=== PATIENT | male | born 1950 | race Caucasian/White ===

== ENCOUNTER 2018-06-17 10:59 | Outpatient (CLI) | payer MEDICARE ==
[~2018-06-17] VITALS: Ht 172.7 cm; Wt 100.5 kg
--- NOTE | ~2018-06-17 | OP ---
PATIENT NAME: DIA NG MEDICAL RECORD: [id number] :54 LOCATION:D.CAT ADMISSION DATE: SURGEON: CHARLY MICHEL MD DATE OF OPERATION: 06/17/2018 PROCEDURE: Left heart catheterization, selective coronary angiography, right femoral artery approach. CATHETERS: A 5-Tongan sheath, 5/4 left and right Tasha, 5/4 pig. The procedure was well tolerated. The patient returned to youssef, sheath removed. ExoSeal device placed. FINDINGS: Left ventriculography in 30-degree LEON view: Normal wall motion, normal systolic function. CORONARY ANATOMY: LEFT MAIN: Left main is free of disease. LAD: Free of disease in the diagonal system. CIRCUMFLEX: Free of disease in the marginal system. RIGHT CORONARY ARTERY: Dominant artery, gives rise to PDA, free of disease. IMPRESSION: Normal LV systolic function, normal coronary anatomy. TRANSINT:[id number] Voice Confirmation ID: [id number] DOCUMENT ID: [id number] CHARLY MICHEL MD at 1449 CC: [id number] DICTATION DATE: 06/17/18 1320 BUSINESS DEVELOPMENT INTERN: 06/17/18 1337 DEP CLI 06/17/18 [facility] [address] [place] [address]
--- NOTE | ~2018-06-17 | HEMODYNAMI ---
PATIENT:DIA NG MEDICAL RECORD: [id number] : 54 LOCATION:[facility]UT[facility] ADMISSION DATE: 06/17/18 Generatedon:06/17/201813:14 Patient name: DIA NG Patient #: [id number] SSN: : 1950 Date of study: 06/17/2018 Page: Of Hemodynamic Procedure Report Patient Data Patient Demographics Procedure consent was obtained First Name: DIA Gender: Male Last Name: BERENICE : 1950 Middle Initial: CEDRIC Age: 67 year(s) Patient #: [id number] Race: Unknown Additional ID: [id number] Contact details Address: [address] [place] [address] State: [place] City: [place] Zip code: [address] Past Medical History Allergies: No known allergies Admission Admission Data Admission Date: 06/17/2018 Admission Time: 10:59 Height (in.): 5.8 BSA: 0.36 (m2) Height (cm.): 14.73 BMI: 4618.86 (kg/m2) Weight (lbs.): 221 Weight (kg.): 100.24 Lab Results Lab Result Date: 06/17/2018 Lab Result Time: 0:00 Biochemistry Name Units Result Min Max BUN mg/dl 19 --(----)*- 7 18 Creatinine mg/dl 1.5 --(----)-* 0.6 1.3 CBC Name Units Result Min Max Hemoglobin g/dl 14.7 --(-*--)-- 13.5 17.5 Procedure Procedure Types Cath Procedure Diagnostic Procedure LHC LH w/Coronaries Procedure Description Procedure Date Procedure Date: 06/17/2018 Procedure Start Time: 13:04 Procedure End Time: 13:12 Procedure Staff Name Function Rubin Bazzi MD Performing Physician Yaneli Ceja RT Monitor Lucy Thomson RT Scrub Martin Calderon RN Nurse Peter Maciel RT Emulsion Coater Procedure Data Cath Procedure Fluoroscopy Diagnostic fluoroscopy Total fluoroscopy Time: 1.4 time: 1.4 min min Diagnostic fluoroscopy Total fluoroscopy dose: 340 dose: 340 mGy mGy Contrast Material Contrast Material Type Amount (ml) Isovue 300 60 Entry Location Entry Primary Successful Side Size Upsize Upsize Entry Closure Succes sful Closure Location (Fr) 1 (Fr) 2 (Fr) Remarks Device Remarks Femoral Right 5 Fr Exoseal artery Estimated blood loss: 5 ml Diagnostic catheters Device Type Used For End Catheter Placement MULTIPACK JL 4.0 5Fr Procedure catheter MULTIPACK 3DRC 5Fr Procedure catheter MULTIPACK Pigtail 5 Fr Procedure catheter Procedure Complications No complications Procedure Medications Medication Administration Route Dosage 0.9% NaCl I.V. 100 ml/hr Oxygen etCO2 Nasal cannula 2 l/min Heparin Flush Bag added to field 2 bags (1000units/500ml NS) Lidocaine 2% added to field 20 Benadryl I.V. 50 mg Versed I.V. 2 mg Fentanyl I.V. 100 mcg Versed I.V. 1 mg Hemodynamics Rest BSA: 0.36 (m2) HGB: 14.7 (g/dl) O2 Consumption: Estimated: 41.38 (ml/min) O2 Con sumption indexed: Estimated:114.94 (ml/min/m) Heart Rate: 66 (bpm) Pressure Samples Time Site Value (mmHg) Purpose Heart Use Rate(bpm) 13:10 LV 122/3,23 Snapshot 71 Gradients Valve Time Site Site Mean SEP/DFP Peak To Heart Use 1 2 (mmHg) (sec/min) Peak Rate (mmHg) (bpm) Aortic 13:10 LV AO 60 Snapshots Pre Cath Intra NCS Post Cath Vital Signs Time Heart Resp SPO2 etCO2 NIBP Rhythm Pain Sedation Rate (ipm) (%) (mmHg) (mmHg) Status Level (bpm) 12:44:07 65 21 96 0 113/67(90) NSR 0 (11) 10(A) , No pain 12:48:49 67 16 95 29.2 111/62(76) NSR 0 (11) 10(A) , No pain 12:53:30 67 16 94 11.2 109/63(76) NSR 0 (11) 10(A) , No pain 12:58:10 69 14 94 37.5 106/68(92) NSR 0 (11) 10(A) , No pain 13:02:49 69 10 94 29.3 117/67(95) NSR 0 (11) 10(A) , No pain 13:07:30 71 12 97 40.5 122/63(86) NSR 0 (11) 9(A) , No pain 13:12:08 72 11 96 36.8 114/63(83) NSR 0 (11) 9(A) , No pain Medications Time Medication Route Dose Verified Delivered Reason Notes Eff ectiveness by by 12:47:45 0.9% NaCl I.V. 100 Martin Martin Per ml/hr Lorigan Lorigan physician RN RN 12:47:57 Oxygen etCO2 2 Martin Martin Per Nasal l/min Lorigan Lorigan physician cannula RN RN 12:48:09 Heparin Flush added 2 Martin Martin used for Bag to bags Lorigan Lorigan procedure (1000units/500ml field RN RN NS) 12:48:22 Lidocaine 2% added 20ml Martin Martin for local to vial Lorigan Lorigan anesthetic field RN RN 12:48:39 Benadryl I.V. 50 mg Martin Martin Per Lorigan Lorigan physician RN RN 13:00:59 Versed I.V. 2 mg Martin Martin for Lorigan Lorigan sedation RN RN 13:01:08 Fentanyl I.V. 100 Martin Martin for mcg Lorigan Lorigan sedation RN RN 13:06:42 Versed I.V. 1 mg Martin Martin for Lorigan Lorigan sedation RN federal district clerk Log Time Note 12:31:54 Signed procedure consent form obtained from patient. 12:31:55 Time tracking: Regular hours (M-F 7:00 - 5:00) 12:31:59 Plan of Care:Hemodynamics will remain stable., Cardiac rhythm will remain stable., Comfort level will be maintained., Respiratory function will remain adequate., Patient/ family verbilizes understanding of procedure., Procedure tolerated without complication., Recovers from procedure without complications.. 12:32:42 Peter REECE(R) sent for patient. Start room use. 12:33:07 H&P Date Dictated: 06/03/2018 Within 30 days and on chart., H&P Addendum completed by physician on day of procedure. (MUST COMPLETE FOR ALL OUTPATIENTS). 12:33:13 Patient allergic to No known allergies 12:33:25 Patient Height : 5.8 inches 12:33:29 Patient Weight : 221 lbs 12:34:04 Lab Result : BUN 19 mg/dl 12:34:04 Lab Result : Hemoglobin 14.7 g/dl 12:34:04 Lab Result : Creatinine 1.5 mg/dl 12:37:34 Patient received from Pre/Post Procedure Room to CCL 1 Alert and oriented. Tansferred to table in Supine position. 12:37:35 Warm blankets applied, and rickie hugger turned on for patient comfort. 12:37:35 Correct patient and procedure confirmed by team. 12:37:36 ECG and BP/O2 sat monitors applied to patient. 12:43:10 Vital chart was started 12:43:11 Baseline sample Acquired. 12:43:13 Rhythm: sinus rhythm 12:43:14 Full Disclosure recording started 12:43:15 Pre-procedure instructions explained to patient. 12:43:16 Pre-op teaching completed and patient verbalized understanding. 12:43:17 Family in patients room. 12:43:23 Is the patient allergic to Iodine/contrast media? No. 12:43:24 Is patient on blood thinner?No 12:43:26 Patient diabetic? No. 12:43:27 ----Pre-sedation anethsthesia assessment.---- 12:43:29 Previous problem with sedation/anesthesia? No ? 12:43:30 Snore? Yes 12:43:31 Sleep apnea? No 12:43:33 Deviated septum? No 12:43:35 Opens mouth fully? Yes 12:43:36 Sticks out tongue? Yes 12:43:39 Airway obstruction? No ? 12:43:40 Dentures? No ? 12:43:43 Pre procedure: right dorsailis pedis pulse 2+ Normal; easily identifiable; not easily obliterated 12:43:46 Modified Thomas's test Ulnar > 7 seconds. 12:43:51 Patient pain scale 0/10 ?. 12:44:03 IV patent on arrival in left forearm with 0.9% NaCl at 10ml/hr. 12:44:06 Lab results completed and on chart. 12:44:08 Right groin area was prepped with chlora-prep and draped in sterile fashion 12:44:10 Alarms reviewed by R. N. 12:44:10 Sharps counted by scrub and verified by R.N. 12:47:45 0.9% NaCl 100 ml/hr I.V. was administered by Martin Calderon RN; Per physician; 12:47:57 Oxygen 2 l/min etCO2 Nasal cannula was administered by Martin Calderon RN; Per physician; 12:48:09 Heparin Flush Bag (1000units/500ml NS) 2 bags added to field was administered by Martin Calderon RN; used for procedure; 12:48:22 Lidocaine 2% 20ml vial added to field was administered by Martin Calderon RN; for local anesthetic; 12:48:39 Benadryl 50 mg I.V. was administered by Martin Calderon RN; Per physician; 12:49:33 Use device set Femoral Dx 12:49:37 ACIST Syringe (86531) opened to sterile field. 12:49:37 Bag Decanter (2002S) opened to sterile field. 12:49:39 ACIST Hand Control (06760) opened to sterile field. 12:49:39 ACIST Manifold (25073) opened to sterile field. 12:49:40 Tegaderm 4 x 4 (1626W) opened to sterile field. 12:49:41 Medline Cath Pack ([id number]) opened to sterile field. 12:49:41 DIAGNOSTIC WIRE .035 260cm J wire (880057) opened to sterile field. 12:49:42 DIAGNOSTIC Multipack 5Fr catheter set ([id number]) opened to sterile field. 12:49:43 SHEATH Prelude 5Fr 0.035 ([id number]) opened to sterile field. 12:55:46 Zero performed for pressure channel P1 13:00:32 --------ALL STOP TIME OUT------ 13:00:32 Final Timeout: patient, procedure, and site verified with staff and physician. All members of the team are in agreement. 13:00:34 Right groin site verified by team. 13:00:37 Physical assessment completed. ASA score P 2 - A patient with mild systemic disease as per Rubin Bazzi MD. 13:00:40 Sedation plan: IV Moderate Sedation Medication:Versed, Fentanyl 13:00:59 Versed 2 mg I.V. was administered by Martin Calderon RN; for sedation; 13:01:08 Fentanyl 100 mcg I.V. was administered by Martin Calderon RN; for sedation; 13:04:35 Procedure started. 13:04:50 Local anesthetic to right femoral artery with Lidocaine 2% by Rubin Bazzi MD.INITIAL ACCESS ONLY 13:05:27 A 5 Fr sheath was inserted into the Right Femoral artery 13:05:40 A MULTIPACK JL 4.0 5Fr catheter was advanced over the wire and used for Procedure. 13:06:42 Versed 1 mg I.V. was administered by Martin Calderon RN; for sedation; 13:07:18 LCA angiography performed. 13:07:22 Catheter removed. 13:07:31 A MULTIPACK 3DRC 5Fr catheter was advanced over the wire and used for Procedure. 13:08:48 RCA angiography performed. 13:08:50 Catheter removed. 13:09:03 A MULTIPACK Pigtail 5 Fr catheter was advanced over the wire and used for Procedure. 13:09:31 LV gram done using LEON 13:09:34 Injector settings: Ml/sec: 10, Volume: 20, 13:10:11 LV hemodynamics recorded. 13:10:24 EF : 55 % 13:10:28 Catheter removed. 13:10:30 EXOSEAL 5Fr (EX500) opened to sterile field. 13:10:59 Sheath removed intact; hemostasis achieved with Exoseal to the Right Femoral artery. 13:11:06 Procedure ended.(Physican Out) 13:11:35 Fluoroscopy time 01.40 minutes. 13:11:39 Fluoroscopy dose: 340 mGy 13:11:39 Flurop Dose total: 340 13:11:42 Contrast amount:Isovue 300 60ml. 13:11:44 Sharps counted by scrub and verified by R.N. 13:11:46 Post-op/insertion site Right Femoral artery dressed using a 4 x 4 and Tegaderm. 13:11:50 Post right femoral artery:stable, soft, clean and dry 13:11:57 Post procedure: right dorsailis pedis pulse 2+ Normal; easily identifiable; not easily obliterated. 13:12:00 Post-procedure physical assessment completed. ASA score P 2 - A patient with mild systemic disease as per Rubin Bazzi MD. 13:12:02 Post procedure rhythm: sinus rhythm 13:12:04 Estimated blood loss: 5 ml 13:12:06 Post procedure instruction explained to patient.Patient verbalizes understanding. 13:12:06 Patient needs reinforcement of post procedure teaching. 13:12:29 Procedure and supply charges have been captured, reviewed, submitted and are correct. 13:12:31 Procedure Complication : No complications 13:12:33 Vital chart was stopped 13:12:33 See physician's report for complete and final results. 13:12:36 Report given to Pre/Post Procedure Room. 13:12:38 Patient transfered to Pre/Post Procedure Room with Bed. 13:12:40 Procedure ended. 13:12:40 Full Disclosure recording stopped 13:12:45 End room use (Document Last) Device Usage Item Name Manufacture Quantity Catalog Number Hospital Part Current M inimal Lot# / Charge Number Stock Stock Serial# Code ACIST Syringe Acist 1 77361 157439 808889 [id number] 2 0 (53367) [employer] Bag Decanter Microtek 1 2001S 568894 31627 952501 5 (2001S) Medical Inc. ACIST Hand Acist 1 39606 768361 108989 273999 5 Control (57722) [employer] ACIST Manifold Acist 1 50016 435154 365278 461510 5 (76813) [employer] Tegaderm 4 x 4 3M 1 1626W 489445 680153 944470 5 (1626W) Medline Cath Cardinal 1 [id number] 375663 11273 560451 5 Pack Health ([id number]) DIAGNOSTIC WIRE [facility] Chris 1 013860 023042 936891 859022 3 0 .035 260cm J wire (748026) DIAGNOSTIC Cardinal 1 WW7762 900017 18155 584470 3 0 Multipack 5Fr Health catheter set ([id number]) SHEATH Prelude Merit 1 [id number] 473388 816273 167720 5 5Fr 0.035 Medical ([id number]) MULTIPACK JL Cardinal 1 280467 5 4.0 5Fr Health catheter MULTIPACK 3DRC Cardinal 1 [id number] 5 5Fr catheter Health MULTIPACK Cardinal 1 234005 5 Pigtail 5 Fr Health catheter EXOSEAL 5Fr Cardinal 1 EX500 263131 145353 733904 1 0 (EX500) Health Signature Audit [place] Stage Time Signature Unsigned Intra-Procedure 06/17/2018 Yaneli Ceaj 1:14:31 PM RT(R) Signatures Monitor : Yaneli Ceja Signature : RT Date : Time : [facility] [address] [facility] [place] [address]
[2018-06-17] MEDS ORDERED: LOTENSIN5 MG PO (11:37)
[2018-06-17] MEDS ORDERED: ZYLOPRIM300 MG PO (11:37)
[2018-06-17] MEDS ORDERED: LOPRESSOR25 MG PO (11:38)
[2018-06-17] MEDS ORDERED: ZYPREXA10 MG PO (11:38)
[2018-06-17] MEDS ORDERED: ZOLOFT100 MG PO (11:39)
[2018-06-17] MEDS ORDERED: ALDACTONE50 MG PO (11:39)
[2018-06-17 11:48] VITALS: BP 116/69; Ht 172.7 cm; Wt 100.5 kg
[2018-06-17 12:00] LABS: BASOPHILS 0.4 % (0-2); EOSINOPHILS 2.1 % (0-7); HEMATOCRIT 41.7 % (42.0-54.0); HEMOGLOBIN 14.7 g/dL (13.5-17.5); IMMATURE GRANULOCYTES 0.5 % (0-5); LYMPHOCYTES 17.9 % (15-50); MCH 33.4 pg (26.0-34.0); MCHC 35.3 g/dL (31.0-37.0); MCV 94.8 fL (80.0-100.0); MEAN PLATELET VOLUME 9.3 fL (7.4-10.4); MONOCYTES 10.5 % (2-11); NEUTROPHILS 68.6 % (40-80); PLATELET COUNT 183 10x3/uL (130-400); RDW 12.9 % (11.5-14.5); WBC 7.8 10x3/uL (4.8-10.8)
[2018-06-17 12:11] LABS: ANION GAP 13.6 mmol/L (8-16); CALCIUM 8.8 mg/dL (8.5-10.1); CARBON DIOXIDE 22.1 mmol/L (21.0-32.0); CREATININE - SERUM 1.5 mg/dL (0.6-1.3); POTASSIUM - SERUM 4.7 mmol/L (3.5-5.1)
== END 2018-06-17 15:30 | disposition home or self-care (01) ==
LOC: D.CATH 10:59
PROVIDERS: Internal Medicine Interventional Cardiology
DX: I20.9 Angina pectoris, unspecified (principal); Z01.812 Encounter for preprocedural laboratory examination

== ENCOUNTER → 2018-07-10 08:07 | Outpatient (CLI) | payer MEDICARE ==
[2018-06-17 11:48] VITALS: BMI 33.6
[~2018-07-10 08:07] MED LIST: ALDACTONE50 MG PO; LOPRESSOR25 MG PO; LOTENSIN5 MG PO; ZOLOFT100 MG PO; ZYLOPRIM300 MG PO; ZYPREXA10 MG PO
[2018-07-10 10:33] LABS: CREATININE - SERUM 1.4 mg/dL (0.6-1.3)
== END | disposition home or self-care (01) ==
LOC: D.CT 08:07 → D.RT 09:00
PROVIDERS: Internal Medicine Pulmonary Disease
DX: R07.9 Chest pain, unspecified (principal); R06.2 Wheezing; R06.09 Other forms of dyspnea; I50.30 Unspecified diastolic (congestive) heart failure

== ENCOUNTER → 2019-03-15 16:23 | Outpatient (CLI) | payer MEDICARE ==
[2018-06-17 11:48] VITALS: BMI 33.6
[~2019-03-15 16:23] MED LIST changes: +CARAFATE1 G PO; +FERROUS SULFAT325 MG PO; +FOLTX TABLET1 EACH PO; +LOTENSIN 10 MG10 MG PO; +PROTONIX40 MG PO; +TOPROL XL25 MG PO; +VITAMIN B-1100 M1 PO
[2019-03-15 16:45] LABS: BASOPHILS 0.5 % (0-2); EOSINOPHILS 3.4 % (0-7); HEMATOCRIT 31.7 % (42.0-54.0); HEMOGLOBIN 10.6 g/dL (13.5-17.5); IMMATURE GRANULOCYTES 0.2 % (0-5); LYMPHOCYTES 34.4 % (15-50); MCH 31.9 pg (26.0-34.0); MCHC 33.4 g/dL (31.0-37.0); MCV 95.5 fL (80.0-100.0); MEAN PLATELET VOLUME 9.3 fL (7.4-10.4); MONOCYTES 6.6 % (2-11); NEUTROPHILS 54.9 % (40-80); RBC 3.32 10x6/uL (4.20-6.10); RDW 15.3 % (11.5-14.5); WBC 4.1 10x3/uL (4.8-10.8)
[2019-03-15 16:46] LABS: PLATELET COUNT 226 10x3/uL (130-400)
[2019-03-15 16:55] LABS: ALBUMIN 2.7 g/dL (3.4-5.0); ALKALINE PHOSPHATASE 131 U/L (46-116); ALT (SGPT) 18 U/L (10-68); BILIRUBIN - TOTAL 0.45 mg/dL (0.2-1.3); CALC OSMOLALITY 282 mosm/kg (275-300); CALCIUM 8.3 mg/dL (8.5-10.1); CHLORIDE - SERUM 110 mmol/L (98-107); GLUCOSE 90 mg/dL (74-106); POTASSIUM - SERUM 3.1 mmol/L (3.5-5.1); PROTEIN - SERUM 6.3 g/dL (6.4-8.2); SODIUM 143 mmol/L (136-145); UREA NITROGEN 8 mg/dL (7-18); eGFR NON AFRICAN AMERICAN 79 mL/min (90-120)
== END | disposition home or self-care (01) ==
LOC: D.LABREF 16:23
PROVIDERS: ATTEND Internal Medicine Medical Oncology
DX: I26.99 Other pulmonary embolism without acute cor pulmonale (principal); R53.1 Weakness; K29.50 Unspecified chronic gastritis without bleeding; I10 Essential (primary) hypertension

== ENCOUNTER 2019-03-19 12:10 | Inpatient (IN) | payer MEDICARE | END 2019-03-25 13:45 | disposition home or self-care (01) | DRG 885 | LOC: D.ER 12:10 → D.PSYCH 15:45 | PROVIDERS: ADMIT Psychiatry & Neurology Psychiatry | DX: F33.1 Major depressive disorder, recurrent, moderate (principal); R45.851 Suicidal ideations; F10.10 Alcohol abuse, uncomplicated; I10 Essential (primary) hypertension; D64.9 Anemia, unspecified; M10.9 Gout, unspecified; K59.00 Constipation, unspecified; Z86.711 Personal history of pulmonary embolism; Z79.01 Long term (current) use of anticoagulants ==